=== PATIENT | female | born 1985 | race Caucasian/White ===

== ENCOUNTER 2017-02-10 10:11 | Inpatient (IN) | payer MEDICAID ==
[~2017-02-10 10:11] MED LIST: Bupivacaine 0.5%/EPINEPHrine 1:200,000 50 ML MDV ONE; FENTANYL PATCH ASK TOP SCH
[2017-02-10] MEDS ORDERED: fentaNYL 25 MCG/HR Transdermal Patch TRDERM SCH (11:00)
[2017-02-10] MEDS ORDERED: Dextrose 5%-Lactated Ringers 1,000 ML IV SCH (11:00)
[2017-02-10] MEDS ORDERED: HYDROmorphone/Normal Saline 15 MG/30 ML PCA IV PRN (11:35)
[2017-02-10] MEDS ORDERED: Naloxone 0.4 MG/ML SDV IVPUSH PRN (11:35)
[2017-02-10] MEDS ORDERED: fentaNYL 100 MCG/2 ML SDV ONE (14:29)
[2017-02-10] MEDS ORDERED: Rocuronium 50 MG/5 ML Vial ONE (14:31)
[2017-02-10] MEDS ORDERED: Ondansetron 4 MG/2 ML SDV ONE (14:31)
[2017-02-10] MEDS ORDERED: Succinylcholine/Normal Saline 200 MG/10 ML Syringe ONE (14:31)
[2017-02-10] MEDS ORDERED: Dexamethasone 4 MG/ML SDV ONE (14:31)
[2017-02-10] MEDS ORDERED: fentaNYL 250 MCG/5 ML SDV ONE (14:31)
[2017-02-10] MEDS ORDERED: Propofol 200 MG/20 ML SDV ONE (14:31)
[2017-02-10] MEDS ORDERED: Neostigmine Methylsulfate 1 MG/ML 5 ML Syringe ONE (14:31)
[2017-02-10] MEDS ORDERED: Lactated Ringers 1,000 ML ONE (15:16)
[2017-02-10] MEDS: cefOXitin 2 GM in Sodium Chloride 0.9% 50 ML IV ONE ×2 (15:22→17:15)
[2017-02-10] MEDS ORDERED: Meropenem 500 MG SDV ONE (15:52)
[2017-02-10] MEDS: VERIFY FENT PATCH TOP SCH ×2 (17:16→20:08)
[2017-02-10] MEDS ORDERED: MVI, Adult with Vitamin K 10 ML, Chromium/Copper/Mang/Selen/Zn 1 ML, Thiamine 200 MG in... IV SCH ×4 (18:45)
[2017-02-10] MEDS ORDERED: Ondansetron 4 MG/2 ML SDV IVPUSH PRN (18:46)
[2017-02-10] MEDS ORDERED: hydrOXYzine HCl 50 MG/ML SDV IM PRN (18:47)
[2017-02-10] MEDS ORDERED: Metoclopramide 10 MG/2 ML SDV IVPUSH PRN (18:48)
[2017-02-10] MEDS ORDERED: diphenhydrAMINE 50 MG/ML SDV IVPUSH PRN (18:49)
[2017-02-10] MEDS ORDERED: Labetalol 20 MG/4 ML Syringe IVPUSH PRN (18:53)
[2017-02-10] MEDS: Pantoprazole 40 MG Vial IV SCH (20:06)
[2017-02-10] MEDS: Heparin Sodium 5,000 Units/ML Vial SUBCUT SCH (20:06)
[2017-02-10] MEDS: cefOXitin 2 GM in Sodium Chloride 0.9% 50 ML IV SCH (20:06)
[2017-02-11] MEDS ORDERED: Iohexol 647 MG/ML 50 ML SDV PO SCH (00:45)
[2017-02-11] MEDS: cefOXitin 2 GM in Sodium Chloride 0.9% 50 ML IV SCH ×3 (02:34→15:50)
[2017-02-11] MEDS ORDERED: Dextrose 5%-Lactated Ringers 1,000 ML IV SCH (04:15)
[2017-02-11] MEDS: Dextrose 5%-Lactated Ringers 1,000 ML IV SCH ×2 (07:00→23:06)
[2017-02-11] MEDS ORDERED: Naloxone 0.4 MG/ML SDV IVPUSH PRN (07:56)
[2017-02-11] MEDS: VERIFY FENT PATCH TOP SCH ×2 (08:19→22:20)
[2017-02-11] MEDS: Heparin Sodium 5,000 Units/ML Vial SUBCUT SCH ×2 (08:27→20:21)
[2017-02-11] MEDS: Acetaminophen/HYDROcodone 325-5 MG Tab PO PRN ×4 (08:27→22:27)
[2017-02-11] MEDS: Citalopram 20 MG Tab PO SCH (09:06)
[2017-02-11] MEDS: buPROPion 150 MG Tab.ER PO SCH (09:06)
--- NOTE | 2017-02-11 09:57 | CR ---
UGI wo KUB HISTORY: evaluate rev JJ - RNY FINDINGS: After administration of oral contrast, upright views were obtained. Post operative changes gastric bypass. No evidence for leak. Contrast passes freely into proximal small bowel loops. Chol ecystectomy. IUD in place. IMPRESSION: No evidence for leak or obstruction.
[2017-02-11] MEDS ORDERED: MVI, Adult with Vitamin K 10 ML, Chromium/Copper/Mang/Selen/Zn 1 ML, Thiamine 200 MG in... IV SCH ×8 (10:00)
--- NOTE | 2017-02-11 11:42 | PN ---
DATE OF SERVICE: 02/11/2017 The patient has been afebrile with stable vital signs. Oral intake was fairly good overnight, will go up to a step-4 diet today. We will get rid of the Sims catheter and go to oral pain medications, just a patch, and restart the Wellbutrin and Celexa. She may be ready for discharge home tomorrow. Greg Portillo MD /[id number]
[2017-02-11] MEDS: Pantoprazole 40 MG Vial IV SCH (20:21)
[2017-02-12] MEDS: Acetaminophen/HYDROcodone 325-5 MG Tab PO PRN ×2 (02:58→07:23)
[2017-02-12 07:17] VITALS: BP 108/61
[2017-02-12] MEDS ORDERED: Magnesium Hydroxide 400 MG/5 ML Susp 30 ML Cup PO PRN (08:34)
[2017-02-12] MEDS ORDERED: Cyanocobalamin (Vitamin B12) 1,000 MCG/ML SDV IM ONE (09:00)
[2017-02-12] MEDS ORDERED: fentaNYL 25 MCG/HR Transdermal Patch TRDERM SCH (09:00)
[2017-02-12] MEDS: buPROPion 150 MG Tab.ER PO SCH (09:05)
[2017-02-12] MEDS: Heparin Sodium 5,000 Units/ML Vial SUBCUT SCH (09:06)
[2017-02-12] MEDS: Citalopram 20 MG Tab PO SCH (09:07)
--- NOTE | 2017-02-13 15:16 | DISCH ---
ADMISSION DIAGNOSES: 1. Partial small bowel obstruction. 2. History of Duncan-en-Y gastric bypass surgery, unspecified surgical malabsorption, B12 deficiency. 3. Hypoglycemia after GI surgery. 4. Depression/anxiety. 5. Dumping syndrome. 6. Tobacco abuse. 7. Vitamin D deficiency. 8. TMJ pain migraine headaches. 9. Personal history of cervical dysplasia. DISCHARGE DIAGNOSES: Diagnostic laparoscopy for partial small bowel obstruction, bowel resection and lysis of adhesion, and excision of peritoneal nodule on 02/10/2017. HISTORY: Maris Arrieta is a 31-year-old female with postprandial pain. After preoperative evaluation and discussion of possible risks and possible complications, she wished to proceed with surgical procedure. HOSPITAL COURSE: Maris had her surgery on 02/10/2017. She had no operative complications. On postop day #1, she was changed to oral pain medication and she was started on a step 3 gastric bypass diet. Her activity was good. Her pain was well managed. Vital signs were stable and she was ready to be discharged to home on postop day 2. PHYSICAL EXAMINATION: GENERAL: Maris Arrieta is a 31-year-old female. Height is 5 feet 4 inches. Weight is 177 pounds. VITAL SIGNS: TPR is 98.8, 83, 16. Blood pressure 108/61. HEENT: Negative. NECK: Supple. HEART: Regular rate and rhythm. LUNGS: Clear. ABDOMEN: Incisions look good. Abdominal binder is on. EXTREMITIES: Without peripheral edema. DISPOSITION: Discharged to home. CONDITION: Stable and improving. FOLLOWUP APPOINTMENT: With Sobia Steiner PA-C, on 02/21/2017 at 10:00 am. PRESCRIPTIONS: 1. [place] 5/325 mg 1 to 2 every 4 hours p.r.n. pain #50. 2. Milk of Mag, two were sent home with patient to take 1 daily p.r.n. constipation. 3. Fentanyl patch 25 mcg, she is to take the patch off on Friday02/16/2017. She is to resume her home medications: 1. Azelastine 0.05% ophthalmic solution, two sprays in each nostril twice daily. 2. Vitamin D3 1000 international units daily. 3. Citalopram 20 mg oral daily. 4. Vitamin B12 1000 mcg daily. 5. Multivitamin one tablet twice daily. 6. Zofran 4 mg q.6 hours p.r.n. nausea. 7. MiraLAX p.r.n. 8. Nasacort 2 sprays daily. 9. Vitamin B complex 100 mg oral daily. 10.Wellbutrin XL 300 mg oral daily. DIET AFTER DISCHARGE: Step 4 gastric bypass diet. Drink 8 to 10 glasses of water a day. ACTIVITY: As tolerated. No lifting greater than 10 pounds for 2 weeks. Other activity, walk 8 times daily inside your home. Driving, do not drive on pain medication. May shower. Notify provider of fever, increased pain, swelling, redness, drainage, nausea, or vomiting. Wound incision care; keep site clean and dry, wear abdominal binder for 2 weeks, use incentive spirometer 10 times every hour while awake.
--- NOTE | 2017-02-13 15:22 | OR ---
DATE OF PROCEDURE: 02/10/2017 PREOPERATIVE DIAGNOSIS: Partial small bowel obstruction. POSTOPERATIVE DIAGNOSES: 1. Partial small bowel obstruction at jejunojejunostomy. 2. Nodular peritoneal nodule overlying the proximal Duncan limb. OPERATIVE PROCEDURE: Diagnostic laparoscopy with: 1. Small bowel resection (jejunojejunostomy) with anastomosis (01793). 2. Separate enteroenterostomy to re-establish the small-bowel Duncan-en-Y anatomy (97297). 3. Excision of peritoneal nodule (71146). ANESTHESIA: General. POSTMASTER: Sobia Steiner PA-C. INDICATIONS FOR PROCEDURE: This is a 31-year-old presenting with postprandial crampy abdominal pain that is suggestive of partial small bowel obstruction. The plan is to proceed with a diagnostic laparoscopy, laparotomy if necessary, and lysis of adhesions and/or bowel resection. As reviewed with the patient, she has quite severe constipation, and also had some recent weight regain, so if the jejunojejunostomy needs to be resected we would reconstruct that in a manner such that she would have a relatively short common limb with a total alimentary length of around 300 cm, which would likely get rid of her problems with constipation as well as improve the long-term weight management. This would only be done if the bowel resection was such that a reconstruction needed to be done in one manner or another. Potential risks of the procedure including bleeding, infection, leaks from various GI tract closures, possible recurrence or persistence of the problem over time were reviewed, and with regard to the relatively short common limb, possibility of diarrhea, malnutrition issues and such were also gone over as well as possibility of occasional need for revision of that anatomic status was gone over, and the patient wishes to proceed. DETAILS OF PROCEDURE: The patient was taken to the operating room and placed in a supine position. After general endotracheal anesthesia was induced, she was converted to a lithotomy position. Sims catheter was inserted, and the abdomen prepped and draped. In the left lower quadrant, a transverse incision was made, and the peritoneal cavity entered under direct vision with an Optiview trocar, inflated to 15 mmHg pressure of CO2. Laparoscope was then reinserted. No underlying trocar insertion site injuries were seen. Following this, eventually 4 additional trocars were placed across the upper and mid abdomen, and general exploration was undertaken. As one traced down the Duncan limb, there was a 1.5 cm nodular lesion over the medial small bowel. This was basically over the small bowel mesentery, just adjacent to where it came onto the small bowel, and for diagnostic purposes, this was excised and sent as a separate specimen. This measured about 1.5 cm in its long axis. As one traced the small bowel down further it became evident that as one approached the jejunojejunostomy, the point where the small bowel entered into the anastomosis from the Duncan limb vantage point was quite stenotic, and after freeing up the adhesions, it still appeared to be quite narrowed and reddened, and given this, a relatively fixed stricture was evident, and leaving this in place would likely set the patient up for either persistent or recurrent symptoms. Given this, the remainder of the small bowel was run in terms of the common limb and biliopancreatic limb with no additional abnormalities being noted. At this point, 3 components of the jejunojejunostomy were divided adjacent to the anastomosis with the underlying mesentery being divided with Harmonic scalpel. The initial bowel being divided with a JEREMIAH vascular loads. The specimen was then delivered from the field. GI tract continuity was then initially reestablished with an anastomosis between what had been the end of the biliopancreatic limb to the beginning of the common limb. This with the internal firing of the JEREMIAH khan loads and the common opening was then closed transversely with the purple load. Angles anastomosed to the mesenteric defect were then approximated with 0 Ethibond stitch along with fibrin sealant. At this point, the Duncan limb was noted to be 135 cm. The ileocecal valve was identified, and the small bowel then traced back 165 cm. At that level of the end of what had been the Duncan limb was anastomosed to the small bowel at 165 cm point proximal to the ileocecal valve with the same staple sequences as noted above. The angles anastomosed to the mesenteric defect approximated with 0 Ethibond stitch along with fibrin sealant. The anastomoses all appeared to be satisfactory. At this point, the abdomen was irrigated with meropenem-containing saline solution. The new biliopancreatic limb was noted to be 580 cm, and at that point, no further problems noted. Trocar sites at 12 mm sites were closed with 0 Vicryl stitch and the skin with 6-0 Vicryl skin stitch. After the trocar sites had been removed, the peritoneal cavity deflated. The patient was taken to the recovery room in satisfactory condition. Physician insurance underwriting assistant, Sobia Steiner, played an essential role in assisting in this case, helping to position the patient, retract structures as needed, suturing and cutting sutures as and when indicated. Her presence improved the patient's safety and decreased operative time. Greg Portillo MD /[id number]
== END 2017-02-12 11:19 | disposition home or self-care (01) | DRG 330 ==
LOC: JP.SDS 10:11 → JP.SDSSCHI 10:11 → JP.2SS 17:30 → EDSTATUS 18:25
PROVIDERS: ADMIT Surgery; ATTEND Surgery
PROC: 0DBW4ZZ Excision of Peritoneum, Percutaneous Endoscopic Approach (ICD-10-PCS; principal; 2017-02-10)
PROC: 0D1A4ZA Bypass Jejunum to Jejunum, Percutaneous Endoscopic Approach (ICD-10-PCS; principal; 2017-02-10)
PROC: 0DBA4ZX Excision of Jejunum, Percutaneous Endoscopic Approach, Diagnostic (ICD-10-PCS; principal; 2017-02-10)
DX: K56.5 Intestinal adhesions [bands] with obstruction (postinfection) (principal); K91.2 Postsurgical malabsorption, not elsewhere classified; Z98.84 Bariatric surgery status; Z98.0 Intestinal bypass and anastomosis status; F41.9 Anxiety disorder, unspecified; F32.9 Major depressive disorder, single episode, unspecified; E55.9 Vitamin D deficiency, unspecified; K66.8 Other specified disorders of peritoneum; E53.8 Deficiency of other specified B group vitamins; K91.1 Postgastric surgery syndromes; M26.609 Unspecified temporomandibular joint disorder, unspecified side; G43.909 Migraine, unspecified, not intractable, without status migrainosus; Z72.0 Tobacco use
CPT/HCPCS: 74240; 74240-26; 88305; 88307; 94762; A9270-GY; C9113; J0694; J1100; J1170; J1644; J2185; J2405; J2704; J3010; J3411; J3420; J7042; J7050; J7120; Q9967

== ENCOUNTER 2020-04-07 07:04 | Inpatient (IN) | payer MEDICAID ==
[~2020-04-07 07:04] MED LIST changes: -Bupivacaine 0.5%/EPINEPHrine 1:200,000 50 ML MDV ONE; -FENTANYL PATCH ASK TOP SCH; +Meropenem 500 MG SDV ONE
[2020-04-07] MEDS ORDERED: Scopolamine 1.5 MG Transdermal Patch TRDERM SCH (07:15)
[2020-04-07] MEDS ORDERED: Celecoxib 200 MG Cap PO ONE (07:15)
[2020-04-07] MEDS ORDERED: Acetaminophen 500 MG Tab PO ONE (07:15)
[2020-04-07] MEDS ORDERED: Gabapentin 300 MG Cap PO ONE (07:15)
[2020-04-07] MEDS ORDERED: Ondansetron 4 MG/2 ML SDV ONE (07:30)
[2020-04-07] MEDS ORDERED: Dexamethasone 4 MG/ML SDV ONE (07:30)
[2020-04-07] MEDS ORDERED: fentaNYL 250 MCG/5 ML SDV ONE (07:30)
[2020-04-07] MEDS ORDERED: Succinylcholine 200 MG/10 ML MDV ONE (07:30)
[2020-04-07] MEDS ORDERED: Neostigmine Methylsulfate 1 MG/ML 5 ML Syringe ONE (07:30)
[2020-04-07] MEDS ORDERED: Propofol 200 MG/20 ML SDV ONE (07:30)
[2020-04-07] MEDS ORDERED: Rocuronium 50 MG/5 ML Vial ONE (07:30)
[2020-04-07] MEDS ORDERED: Glycopyrrolate 0.2 MG/ML 5 ML MDV ONE (07:30)
[2020-04-07] MEDS ORDERED: Dextrose 5%-Lactated Ringers 1,000 ML IV SCH (07:45)
[2020-04-07] MEDS ORDERED: cefOXitin 2 GM in Sodium Chloride 0.9% 50 ML IV ONE (08:45)
[2020-04-07] MEDS ORDERED: Ketamine 50 MG in Sodium Chloride 0.9% 49.5 ML IV SCH (09:00)
[2020-04-07] MEDS ORDERED: Magnesium Sulfate 3.7 GM in Sodium Chloride 0.9% 250 ML IV ONE (09:00)
[2020-04-07] MEDS ORDERED: Ketamine 500 MG/5 ML MDV IV SCH (09:00)
[2020-04-07] MEDS ORDERED: Magnesium Sulfate 2.3 GM in Sodium Chloride 0.9% 100 ML IV SCH (09:00)
[2020-04-07] MEDS ORDERED: Bupivacaine 0.5% 50 ML MDV ONE (09:52)
[2020-04-07] MEDS ORDERED: Lidocaine 1% with EPINEPHrine 1:100,000 50 ML MDV ONE (09:52)
[2020-04-07] MEDS ORDERED: fentaNYL 100 MCG/2 ML SDV ONE (10:49)
[2020-04-07] MEDS ORDERED: hydrOXYzine HCL 100 MG/2 ML SDV IM ONE (11:01)
[2020-04-07] MEDS ORDERED: Naloxone 0.4 MG/ML SDV IV PRN (11:49)
[2020-04-07] MEDS ORDERED: HYDROmorphone/Normal Saline 15 MG/30 ML PCA IV PRN (11:49)
[2020-04-07] MEDS: Dextrose 5%-Lactated Ringers 1,000 ML IV SCH ×2 (11:56→23:42)
[2020-04-07] MEDS ORDERED: hydrOXYzine HCL 100 MG/2 ML SDV IM PRN (12:25)
[2020-04-07] MEDS ORDERED: Ondansetron 4 MG/2 ML SDV IVPUSH PRN (12:25)
[2020-04-07] MEDS ORDERED: Labetalol 20 MG/4 ML Syringe IVPUSH PRN (12:25)
[2020-04-07] MEDS ORDERED: Metoclopramide 10 MG/2 ML SDV IVPUSH PRN (12:25)
[2020-04-07] MEDS ORDERED: diphenhydrAMINE 50 MG/ML SDV IVPUSH PRN (12:25)
[2020-04-07] MEDS ORDERED: Acetaminophen 500 MG Tab PO PRN (12:25)
[2020-04-07] MEDS ORDERED: Calcium Gluconate 10% 1 GM/10 ML SDV IVPUSH PRN (12:25)
[2020-04-07] MEDS ORDERED: SCOPOLAMINE PATCH CHECK TOP SCH (12:25)
[2020-04-07] MEDS ORDERED: tiZANidine 2 MG Tab PO PRN (12:36)
[2020-04-07] MEDS: Acetaminophen 500 MG Tab PO SCH ×2 (14:21→21:14)
[2020-04-07] MEDS: cefOXitin 2 GM in Sodium Chloride 0.9% 50 ML IV SCH ×2 (14:22→21:12)
[2020-04-07] MEDS: Gabapentin 250 MG/5 ML Solution ML 470 ML Bottle PO SCH ×2 (14:22→21:12)
[2020-04-07] MEDS ORDERED: Pantoprazole 40 MG Vial IVPUSH SCH (15:00)
[2020-04-07] MEDS ORDERED: MVI, Adult with Vitamin K 10 ML, Thiamine 200 MG, Chromium/Copper/Mang/Selen/Zn 1 ML in... IV SCH ×4 (16:00)
[2020-04-07] MEDS: Heparin Sodium 5,000 Units/ML Vial SUBCUT SCH (17:19)
[2020-04-08] MEDS: cefOXitin 2 GM in Sodium Chloride 0.9% 50 ML IV SCH ×3 (02:18→14:28)
[2020-04-08] MEDS ORDERED: Iopamidol 612 MG/ML 50 ML SDV PO ONE (03:34)
--- NOTE | 2020-04-08 05:05 | CRLCR ---
Indication: Post bariatric surgery Technique: Two views of the abdomen performed following the administration of oral contrast Comparison: 02/11/2017 Findings/Impression : Contrast opacifies the gastric pouch and traverses the gastrojejunostomy to opacify left abdominal jejunal segments. No gross extravasation. Small free air underlying the right hemidiaphragm, presumably residual postsurgical, although anastomotic leak is difficult to exclude. Correlate clinically. Abdominal skin jagdish. Cholecystectomy clips. An IUD in the pelvis. Dictated by Harman Walker MD @ 04/08/2020 5:03:39 AM Dictated by: Harman Walker MD @ 04/08/2020 05:03:42 (Electronically Signed)
[2020-04-08] MEDS: Acetaminophen 500 MG Tab PO SCH ×3 (05:58→21:43)
[2020-04-08] MEDS: Heparin Sodium 5,000 Units/ML Vial SUBCUT SCH ×2 (05:58→17:18)
[2020-04-08] MEDS: Dextrose 5%-Lactated Ringers 1,000 ML IV SCH (05:59)
[2020-04-08] MEDS ORDERED: Dextrose 5%-Lactated Ringers 1,000 ML IV SCH (08:15)
[2020-04-08] MEDS: Bisacodyl 5 MG Tab PO SCH ×2 (09:08→21:42)
[2020-04-08] MEDS: Gabapentin 250 MG/5 ML Solution ML 470 ML Bottle PO SCH ×3 (09:08→21:43)
[2020-04-08] MEDS: Citalopram 20 MG Tab PO SCH (09:08)
[2020-04-08] MEDS: Celecoxib 200 MG Cap PO SCH ×2 (09:08→21:43)
[2020-04-08] MEDS: HYDROmorphone 2 MG Tab PO PRN ×3 (09:08→21:41)
[2020-04-08] MEDS: Fluticasone Propionate Nasal Spray 16 GM Bottle NASBOTH SCH (09:09)
[2020-04-08] MEDS: Docusate Sodium 100 MG Cap PO SCH ×2 (09:09→21:42)
[2020-04-08] MEDS ORDERED: MVI, Adult with Vitamin K 10 ML, Thiamine 200 MG, Chromium/Copper/Mang/Selen/Zn 1 ML in... IV SCH ×4 (16:00)
[2020-04-08] MEDS ORDERED: Pantoprazole 40 MG Tab.CR PO SCH (17:00)
[2020-04-08] MEDS: Cyclobenzaprine 10 MG Tab PO PRN (17:22)
[2020-04-09] MEDS: HYDROmorphone 2 MG Tab PO PRN ×2 (02:59→07:10)
[2020-04-09] MEDS: Acetaminophen 500 MG Tab PO SCH ×2 (06:04→07:10)
[2020-04-09] MEDS: Heparin Sodium 5,000 Units/ML Vial SUBCUT SCH (06:04)
[2020-04-09 07:05] VITALS: BP 108/61; PULSE 72
[2020-04-09] MEDS ORDERED: Magnesium Hydroxide 400 MG/5 ML Susp 30 ML Cup PO ONE (08:30)
[2020-04-09] MEDS ORDERED: Cyanocobalamin (Vitamin B12) 1,000 MCG/ML SDV IM ONE (09:00)
[2020-04-09] MEDS: Fluticasone Propionate Nasal Spray 16 GM Bottle NASBOTH SCH (09:28)
[2020-04-09] MEDS: Gabapentin 250 MG/5 ML Solution ML 470 ML Bottle PO SCH (09:28)
[2020-04-09] MEDS: Celecoxib 200 MG Cap PO SCH (09:29)
[2020-04-09] MEDS: Docusate Sodium 100 MG Cap PO SCH (09:29)
[2020-04-09] MEDS: Citalopram 20 MG Tab PO SCH (09:29)
[2020-04-09] MEDS: Bisacodyl 5 MG Tab PO SCH (09:30)
[2020-04-09] MEDS: Cyclobenzaprine 10 MG Tab PO PRN (09:36)
--- NOTE | 2020-04-12 09:35 | PN ---
DATE OF SERVICE: 04/08/2020 The patient has been afebrile with stable vital signs, status post small-bowel resection with release of the small bowel obstruction, along with a sigmoid colon resection yesterday. Clinically, she has done well overnight. Sims catheter came out overnight. Oral intake was good. Upper GI x-ray looked good with good flow through the small bowel being confirmed. She had had some blurred vision, and this is likely related to the scopolamine patch and it will be removed. We will go over to oral pain medication and begin some bowel stimulation, work with pulmonary toilet. Greg Portillo MD /[id number] MTDD
--- NOTE | 2020-04-12 13:03 | DISCH ---
FINAL DIAGNOSES: Partial small bowel obstruction associated with: 1. Small bowel volvulus. 2. Stricture at Duncan limb as it entered the jejunojejunostomy. 3. 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 4. Chronic sigmoid volvulus. 5. Bariatric surgery status. OPERATIVE PROCEDURES: Done on 04/07/20, exploratory laparotomy with lysis of adhesions: 1. Reduction of small bowel volvulus and closure of internal hernia. 2. Small bowel resection. 3. Secondary enteroenterostomy for re-establishment of Duncan-en-Y small bowel anatomy. 4. Small bowel stricturoplasty. 5. Rectosigmoid resection with coloproctostomy. 6. Placement of Interceed mesh to limit recurrent adhesion formation. SUMMARY: This is a 34-year-old presenting with a picture of partial small bowel obstruction, status post previous Duncan-en-Y gastric bypass. On the day of admission, the patient underwent a limited laparotomy with the above findings, and the above procedures were completed. Postoperatively, she has done well. She is passing some gas, but has not moved her bowels and she will be sent home with some milk of magnesia to help with that. Otherwise, she will be instructed to stay on a step 3 diet until the first appointment, which will be with Sobia Steiner in [facility] on 04/18/20. She will be instructed to stay on a step 3 diet until the first appointment, and she will be continued on home medications plus Dilaudid 2 mg p.o. q.4 hours p.r.n. pain #30 and the milk of magnesia as noted above.
--- NOTE | 2020-04-12 16:22 | OR ---
DATE OF PROCEDURE: 04/07/2020 SURGEON: Greg Portillo MD PREOPERATIVE DIAGNOSIS: Partial small bowel obstruction. POSTOPERATIVE DIAGNOSES: 1. Partial small bowel obstruction associated with. a. Small bowel volvulus. b. Stricture at point of Duncan limb entering jejunojejunostomy. 2. Secondary stricture of the previous biliopancreatic common limb anastomosis. 3. Chronic sigmoid volvulus. OPERATIVE PROCEDURES: Exploratory laparotomy with lysis of adhesions and, 1. Reduction of small bowel volvulus and closure of internal hernia (06276). 2. Small bowel resection (13574). 3. Secondary enteroenterostomy to reestablish small bowel Duncan-en-Y anatomy (13143). 4. Small bowel stricturoplasty (76489). 5. Rectosigmoid resection with coloproctostomy (86974). 6. Placement of Interceed mesh to limit recurrent adhesion formation between pelvic and abdominal cisneros and underlying viscera (03399). ANESTHESIA: General. ROLL FILLER: Sobia Steiner PA-C INDICATIONS FOR PROCEDURE: This is a 34-year-old status post previous Duncan-en-Y gastric bypass, presenting with a picture of small bowel obstruction. The patient also has quite severe chronic constipation. The plan is to proceed with exploratory laparotomy with release of small bowel obstruction, possible bowel resection. Potential risks of the procedure including bleeding, infection, injury to underlying viscera, leaks from GI tract closures, problems with obstruction recurring over time were all reviewed, and the patient wishes to proceed. DETAILS OF PROCEDURE: The patient was taken to the operating room and placed in a supine position. After general endotracheal anesthesia was induced, a Sims catheter was inserted, and abdomen prepped and draped. A midline incision from, what would be, the level of the umbilicus upward toward the xiphoid about a handsbreadth length was then made and carried down through the full-thickness abdominal wall and into the peritoneal cavity. Upon initial exploration, the patient was noted to have an area of small bowel volvulus with rotation of large amount of small bowel underneath the leaves of the jejunojejunostomy mesentery from a right to left direction. This was reduced at that point. All bowel appeared to be viable, probably related to the chronic volvulus. The patient had developed stricture at the point where the Duncan limb entered the jejunojejunostomy. The patient was also noted to have secondary stricture at the previous enteroenterostomy between what had been the biliopancreatic limb and then the proximal common limb at that time. One additional finding was that of what appeared to be a chronic sigmoid colon volvulus with the sigmoid colon markedly elongated and distended, and there was a crease at the base where it appeared to intermittently rotate on itself. At this point, the components of the jejunojejunostomy were resected with a JEREMIAH stapler and underlying mesentery divided with JEREMIAH stapler as well. Small bowel continuity was then initially established with anastomosis between the distal-most biliopancreatic limb and proximal most common limb. This was done with internal firing of the Endo-JEREMIAH 60 mm stapler followed by 30 mm stapler. Common openings were closed transversely with purple load, and the angles of anastomosis were reinforced with some 3-0 Vicryl stitch, and the mesentery closed with 2-0 silk stitch. Small bowel continuity was then reestablished. We did adjust the limb lengths to facilitate a little bit more in the way of weight loss as well as hopefully improve the patient's constipation. The Duncan limb anatomy was then reestablished with the same sequence of jagdish as the initial anastomosis and mesenteric defect once again closed with 2-0 silk stitch. The Duncan limb length at this point was 80 cm, biliopancreatic limb 280 cm, and common limb 340 cm. The area of stricturing at the previous anastomosis was then dealt with opening of the intermesenteric border of the end of the anastomosis and one limb of JEREMIAH stapler placed in the anterior side of the bowel. This was done initially with 60 mm stapler and 38 mm stapler was then used secondarily for the internal firing in the common opening and then stapled off with a JEREMIAH purple load. In this case, there was no mesenteric defect and angles of anastomosis reinforced with 3-0 Vicryl stitch. The patient was noted, as mentioned above, to have a chronic sigmoid colon volvulus. Given this, the mid-sigmoid colon was then divided with the JEREMIAH stapler and the upper most rectum divided with a JEREMIAH stapler as well and underlying mesentery divided with JEREMIAH mesenteric loads, and rectosigmoid specimen delivered from the field. A [id number] anastomosis was then accomplished between the rectum and the more proximal sigmoid colon with 2 internal firings of JEREMIAH 60 mm staplers, common opening closed transversely with the JEREMIAH jagdish as well. Angles of anastomosis were then reinforced with some 3-0 Vicryl stitch and the mesentery closed with 3-0 silk stitch. This anastomosis was reinforced with some fibrin sealant as well. At this point, no further problems were noted. The abdomen was irrigated with antibiotic- containing saline solution. Drains were now placed. The midline fascia was then approximated with #2 Vicryl stitch. Prior to that, Interceed mesh was placed underneath the incision and from there down toward the pelvis to limit recurrent adhesion formation between the pelvic and abdominal cisneros, and underlying viscera. Following this, the fascial closure was completed. Subcutaneous tissue was packed with some 3-0 and 4-0 Vicryl stitch deep and jagdish for the skin. The patient received bilateral transversus abdominis plane blocks during the procedure. The skin incisions were anesthetized with 0.5% Marcaine mixed with lidocaine, and the patient was taken to the recovery room in satisfactory condition. Physician assistant department manager, Sobai Steiner, played an essential role in assisting in this case; helping to position the patient, retract structures as needed, as well as suturing and cutting sutures when indicated. Her presence improved patient safety and decreased the operative time. Greg Portillo MD /[id number]
== END 2020-04-09 10:20 | disposition home or self-care (01) | DRG 326 ==
LOC: JP.MS 07:04 → JP.SDS 07:05 → EDSTATUS 08:45 → JP.MS 11:20
PROVIDERS: ADMIT Surgery; ATTEND Surgery
PROC: 0DS80ZZ Reposition Small Intestine, Open Approach (ICD-10-PCS; principal; 2020-04-07)
PROC: 0D160ZA Bypass Stomach to Jejunum, Open Approach (ICD-10-PCS; 2020-04-07)
PROC: 0DB80ZZ Excision of Small Intestine, Open Approach (ICD-10-PCS; 2020-04-07)
PROC: 0DQ80ZZ Repair Small Intestine, Open Approach (ICD-10-PCS; 2020-04-07)
PROC: 0D1N0ZP Bypass Sigmoid Colon to Rectum, Open Approach (ICD-10-PCS; 2020-04-07)
PROC: 3E0M05Z Introduction of Adhesion Barrier into Peritoneal Cavity, Open Approach (ICD-10-PCS; 2020-04-07)
DX: K94.19 Other complications of enterostomy (principal); K56.2 Volvulus; Z98.84 Bariatric surgery status; F32.9 Major depressive disorder, single episode, unspecified; Z90.49 Acquired absence of other specified parts of digestive tract; Z79.899 Other long term (current) drug therapy; Z87.891 Personal history of nicotine dependence
CPT/HCPCS: 36415; 74240; 80053; 82306; 82525; 82607; 82728; 82746; 83735; 84425; 84590; 84630; 85027; 88307; A9270-GY; C9113; J0171; J0330; J0694; J1100; J1170; J1644; J2185; J2405; J2704; J2710; J2795; J3010; J3410; J3411; J3420; J3475; J3490; J7050; J7121; Q9967

== ENCOUNTER 2020-05-19 05:48 | Inpatient (IN) | payer MEDICAID ==
[2020-05-19] MEDS ORDERED: Acetaminophen 500 MG Tab PO ONE (06:00)
[2020-05-19] MEDS ORDERED: Celecoxib 200 MG Cap PO ONE ×2 (06:00)
[2020-05-19] MEDS ORDERED: Dextrose 5%-Lactated Ringers 1,000 ML IV SCH (06:30)
[2020-05-19] MEDS ORDERED: Meropenem 500 MG SDV ONE (06:39)
[2020-05-19] MEDS ORDERED: fentaNYL 250 MCG/5 ML SDV ONE (06:51)
[2020-05-19] MEDS ORDERED: Glycopyrrolate 0.2 MG/ML 5 ML MDV ONE (06:52)
[2020-05-19] MEDS ORDERED: Succinylcholine 200 MG/10 ML MDV ONE (06:52)
[2020-05-19] MEDS ORDERED: Propofol 200 MG/20 ML SDV ONE (06:52)
[2020-05-19] MEDS ORDERED: Rocuronium 50 MG/5 ML Vial ONE (06:52)
[2020-05-19] MEDS ORDERED: Ondansetron 4 MG/2 ML SDV ONE (06:52)
[2020-05-19] MEDS ORDERED: Dexamethasone 4 MG/ML SDV ONE (06:52)
[2020-05-19] MEDS ORDERED: Neostigmine Methylsulfate 1 MG/ML 5 ML Syringe ONE (06:52)
[2020-05-19] MEDS ORDERED: Naloxone 0.4 MG/ML SDV IVPUSH PRN (07:14)
[2020-05-19] MEDS ORDERED: ceFAZolin 2 GM in Premix Bag 1 BAG IV ONE (07:30)
[2020-05-19] MEDS ORDERED: Ketamine 50 MG in Sodium Chloride 0.9% 49.5 ML IV SCH (08:00)
[2020-05-19] MEDS ORDERED: Ropivacaine 36 ML, dexAMETHasone 8 MG, EPINEPHrine 0.4 MG, Sodium Chloride 0.9% 41.6 ML NERVRT SCH ×4 (08:00)
[2020-05-19] MEDS ORDERED: Ketamine 500 MG/5 ML MDV IV SCH (08:00)
[2020-05-19] MEDS ORDERED: Naloxone 0.4 MG/ML SDV IV PRN (08:00)
[2020-05-19] MEDS ORDERED: Bupivacaine 0.5% 50 ML MDV ONE (08:20)
[2020-05-19] MEDS ORDERED: Lidocaine 1% with EPINEPHrine 1:100,000 50 ML MDV ONE (08:21)
[2020-05-19] MEDS: HYDROmorphone/Normal Saline 15 MG/30 ML PCA IV PRN ×2 (08:24→20:57)
[2020-05-19] MEDS ORDERED: fentaNYL 100 MCG/2 ML SDV ONE (09:17)
[2020-05-19] MEDS: Dextrose 5%-Lactated Ringers 1,000 ML IV SCH (10:50)
[2020-05-19] MEDS ORDERED: Ondansetron 4 MG/2 ML SDV IVPUSH PRN (12:00)
[2020-05-19] MEDS ORDERED: hydrOXYzine HCL 100 MG/2 ML SDV IM PRN (12:00)
[2020-05-19] MEDS: Acetaminophen 500 MG Tab PO SCH ×2 (12:24→17:19)
[2020-05-19] MEDS: ceFAZolin 2 GM in Premix Bag 1 BAG IV SCH ×2 (13:48→22:05)
[2020-05-19] MEDS: Docusate Sodium 100 MG Cap PO SCH ×2 (13:48→21:00)
[2020-05-19] MEDS: Sodium Ferric Gluconate Cmplex 250 MG in Sodium Chloride 0.9% 100 ML IV SCH (16:36)
[2020-05-19] MEDS: MVI, Adult with Vitamin K 10 ML, Chromium/Copper/Mang/Selen/Zn 1 ML in Dextrose 5%-Lact... IV SCH ×3 (17:17)
[2020-05-20] MEDS: Acetaminophen 500 MG Tab PO SCH ×4 (00:02→18:05)
[2020-05-20] MEDS: Dextrose 5%-Lactated Ringers 1,000 ML IV SCH ×2 (00:36→07:57)
[2020-05-20] MEDS: ceFAZolin 2 GM in Premix Bag 1 BAG IV SCH (05:38)
[2020-05-20] MEDS: Docusate Sodium 100 MG Cap PO SCH ×2 (08:02→21:01)
[2020-05-20] MEDS: Celecoxib 200 MG Cap PO SCH ×2 (08:02→21:01)
[2020-05-20] MEDS: Sodium Ferric Gluconate Cmplex 250 MG in Sodium Chloride 0.9% 100 ML IV SCH (14:19)
[2020-05-20] MEDS: oxyCODONE 5 MG Tab PO PRN ×2 (16:21→20:27)
[2020-05-20] MEDS: Cyclobenzaprine 10 MG Tab PO PRN ×2 (16:24→22:26)
[2020-05-20] MEDS: MVI, Adult with Vitamin K 10 ML, Chromium/Copper/Mang/Selen/Zn 1 ML in Dextrose 5%-Lact... IV SCH ×3 (18:03)
--- NOTE | 2020-05-20 19:49 | PN ---
DATE OF SERVICE: 05/20/2020 The patient has been afebrile with stable vital signs, status post repair of incarcerated hernia yesterday. Clinically, she is doing well with increasing ferritin level, tolerating a step-1 diet. We will go up to step-3 diet today, back down the IV rate. Sims catheter is coming out. Maximize activity. We will leave the IV in for now. after the iron infusion regarding switching over to some oral pain medications. Greg Portillo MD /[id number]
[2020-05-21] MEDS: Acetaminophen 500 MG Tab PO SCH ×2 (00:05→05:20)
[2020-05-21] MEDS: oxyCODONE 5 MG Tab PO PRN ×3 (00:05→10:14)
[2020-05-21 07:29] VITALS: BP 101/56; PULSE 82
[2020-05-21] MEDS: Celecoxib 200 MG Cap PO SCH (08:03)
[2020-05-21] MEDS: Docusate Sodium 100 MG Cap PO SCH (08:03)
[2020-05-21] MEDS: Cyclobenzaprine 10 MG Tab PO PRN (10:14)
--- NOTE | 2020-05-22 11:21 | OR ---
DATE OF PROCEDURE: 05/19/2020 SURGEON: Greg Portillo MD PREOPERATIVE DIAGNOSIS: Incisional hernia. POSTOPERATIVE DIAGNOSES: 1. Incarcerated incisional hernia. 2. Non-incarcerated umbilical hernia. OPERATIVE PROCEDURES: Exploratory laparotomy with: 1. Repair of incarcerated incisional hernia with mesh (37131, 32074). 2. Repair of non-incarcerated umbilical hernia with mesh (33488). 3. Placement of Interceed mesh x2 to limit adhesion formation between area of mesh placement, as well as the pelvic and abdominal wall and underlying viscera (48529). ANESTHESIA: General. FLY FISHING GUIDE: Sobia Steiner PA-C. INDICATIONS FOR PROCEDURE: This is a 34-year-old presenting with an incisional hernia located in the upper midline incision. The plan is to proceed with an open repair of the incisional hernia with mesh. Potential risks including bleeding, infection, injury to underlying viscera, problems with mesh becoming infected or the hernia recurring were all reviewed, and the patient wishes to proceed. DETAILS OF PROCEDURE: The patient was taken to the operating room and placed in a supine position. After general endotracheal anesthesia was induced, a Sims catheter was inserted and the abdomen prepped and draped. The previous midline incision that was extended from the umbilicus roughly a handsbreadth towards the xiphoid was then reused. A segment of the previous scar was excised to facilitate a more adequate closure. This was carried down through the skin and subcutaneous tissue. Hernia sac was then encountered and dissected down to the level of fascia circumferentially. Hernia sac was then opened. It was noted that it contained some adherent omentum consistent with that area being an incarcerated hernia. The omentum was divided away from the hernia sac, and the hernia sac was then excised flush with the fascia. The patient was noted to have a small non-incarcerated umbilical hernia below that as well, and the during the course of the dissection, the peritoneum extending into the umbilical hernia sac was then excised, along with attached primary incisional hernia. At this point, bilateral transversus abdominis plane blocks were placed, and the area was mapped out. The patient had a fairly wide transversely oriented defect, and given this, the decision was made to select an oval mesh measuring 19.6 x 24.6 cm with orientation of the long axis in the transverse direction. This was a Ventrio ST hernia patch. At roughly 5 cm intervals along the polypropylene side, 2-0 Vicryl sutures were placed and small stab wounds were placed in the appropriate level of abdominal wall, allowing the mesh to be pulled up with the sutures, maintaining a wide margin away from the hernia defects. Mesh was then soaked in antibiotic saline solution. On the left side of the mesh, sutures were then pulled up and that portion of the mesh pulled up against the abdominal wall within the abdomen. To limit adhesion formation between area of mesh placement, as well as the pelvic and abdominal wall adjacent to that area, 2 Interceed meshes were placed, and following this, the remaining sutures on the right side of the abdomen were pulled up, thus securing the mesh in general position. The mesh was further secured with titanium tacking screws between the underlying shelf of the mesh and the overlying abdominal wall. At that point, the mesh appeared to be quite well secured. The area was irrigated once again with antibiotic-containing saline solution, and the midline fascia was approximated with #2 Vicryl stitch, subcutaneous tissue with 2 layers of 3-0 and 4-0 Vicryl stitch deep and jagdish for the skin. The fascia was anesthetized with 0.5% Marcaine prior to closure and the patient taken to the recovery room in satisfactory condition. The physician senior agricultural assistant, Sobia Steiner, played an essential role in assisting in this case, helping to position the patient, retract structures as needed, as well as suturing and cutting sutures when indicated. Her presence improved patient safety and decreased operative time. Greg Portillo MD /[id number]
--- NOTE | 2020-05-22 11:38 | DISCH ---
FINAL DIAGNOSES: 1. Incarcerated incisional hernia. 2. Non-incarcerated umbilical hernia. SECONDARY DIAGNOSES: 1. Bariatric surgery status. 2. Iron deficiency. OPERATIVE PROCEDURES: Done on 05/19/20, exploratory laparotomy with: 1. Repair of incarcerated incisional hernia. 2. Repair of non-incarcerated umbilical hernia and placement of Interceed mesh x2 to limit recurrent adhesion formation. HOSPITAL COURSE: This is a 34-year-old female presenting with an increasingly symptomatic incisional hernia. On the day of admission, the patient underwent exploratory laparotomy and repair of the hernias. She also had concurrent umbilical hernia as well. This was done with a mesh technique. Postoperatively, she has had no major problems. She will be discharged home with her usual medications plus oxycodone 5 mg p.o. q.4 hours p.r.n. pain, #42; Celebrex 200 mg p.o. b.i.d. x3 weeks, #42; Flexeril 10 mg p.o. q.6 hours p.r.n., #30, with refill x1, and she will be instructed to hold her Zanaflex until she is off the Flexeril. Followup will be with Sobia Steiner in [facility] on 05/29/2020.
== END 2020-05-21 10:30 | disposition home or self-care (01) | DRG 355 ==
LOC: JP.SDS 05:48 → JP.SDSSCHI 08:45 → JP.MS 08:46 → EDSTATUS 12:55
PROVIDERS: ADMIT Surgery; ATTEND Surgery
PROC: 0WUF0JZ Supplement Abdominal Wall with Synthetic Substitute, Open Approach (ICD-10-PCS; principal; 2020-05-19)
PROC: 0WUF0JZ Supplement Abdominal Wall with Synthetic Substitute, Open Approach (ICD-10-PCS; 2020-05-19)
PROC: 3E0M05Z Introduction of Adhesion Barrier into Peritoneal Cavity, Open Approach (ICD-10-PCS; 2020-05-19)
DX: K43.0 Incisional hernia with obstruction, without gangrene (principal); K42.9 Umbilical hernia without obstruction or gangrene; E66.9 Obesity, unspecified; E61.1 Iron deficiency; F34.1 Dysthymic disorder; Z98.84 Bariatric surgery status; Z90.49 Acquired absence of other specified parts of digestive tract; Z90.89 Acquired absence of other organs; Z87.891 Personal history of nicotine dependence; Z68.29 Body mass index [BMI] 29.0-29.9, adult
CPT/HCPCS: 36415; 80053; 81025; 82607; 82728; 82746; 83735; 84100; 85027; 88302; 94762; A9270-GY; C1713; C1781; J0171; J0330; J0690; J1100; J1170; J2020; J2185; J2405; J2704; J2710; J2795; J2916; J3010; J3490; J7050; J7121